=== PATIENT | male | born 1990 | race Caucasian/White ===

== ENCOUNTER 2019-04-23 04:07 | Emergency (ER) | payer BC, OTHER ==
[~2019-04-23] VITALS: Ht 167.6 cm; Wt 81.7 kg
== END 2019-04-23 06:31 | disposition home or self-care (01) ==
LOC: ER 04:07
DX: S01.81XA Laceration without foreign body of other part of head, initial encounter (principal); W01.198A Fall on same level from slipping, tripping and stumbling with subsequent striking against other object, initial encounter; F17.200 Nicotine dependence, unspecified, uncomplicated
CPT/HCPCS: 12011; 90471; 90714; 99282-25